=== PATIENT | male | born 1955 | race Caucasian/White ===

== ENCOUNTER 2017-12-24 15:09 | Observation (INO) | payer MEDICARE ==
[~2017-12-24] VITALS: Ht 177.8 cm; Wt 88.8 kg
[~2017-12-24 15:09] MED LIST: ASPIR 8181 MG PO; BENICAR40 MG PO; CELEXA20 MG PO; FISH OIL 1,001000 M2 PO; HYDROCHLOROTHIA25 M2 PO; IMDUR 60 MG TAB60 M1 PO; LEVOTHYROXIN0.025 MG PO; LIPITOR 20 MG T20 M1 PO; METFORMIN HCL500 MG PO; MINOCIN100 MG PO; NITROGLYCERIN0.4 MG SUBLING; PEPCID20 MG PO; PLAVIX 75 MG TA75 MG PO; TOPROL XL25 MG PO; TRADJENTA5 MG PO; ZETIA10 MG PO
[2017-12-24 15:14] VITALS: BP 122/48
[2017-12-24 16:01] LABS: ABSOLUTE EOSINOPHILS 0.3 thou/uL (0.0-0.7); ABSOLUTE LYMPHOCYTES 1.4 thou/uL (0.8-5.3); ABSOLUTE MONOCYTES 0.6 thou/uL (0.0-1.2); ABSOLUTE NEUTROPHILS 5.9 thou/uL (1.6-8.1); BASOPHILS 0.5 %; EOSINOPHILS 3.5 %; HEMOGLOBIN 12.8 gm/dL (14.0-18.0); LYMPHOCYTES 17.1 %; MCHC 34.6 g/dL (28.0-37.0); MCV 92.4 fL (80.0-100.0); MONOCYTES 7.4 %; MPV 8.7 fl. (7.2-11.1); NUCLEATED RBCS 0 /100WBC; PLATELET COUNT* 170 thou/uL (150-400); POLYS 71.5 %; RBC 4.01 mil/uL (4.50-6.00); RDW-CV 12.6 % (10.5-14.5); WBC 8.3 thou/uL (4.0-11.0)
[2017-12-24 16:10] LABS: ANION GAP 6 mmol/L (7-16); BUN 16 mg/dL (7-18); CALCIUM 8.6 mg/dL (8.5-10.1); CHLORIDE 105 mmol/L (98-107); CO2 29 mmol/L (21-32); GLUCOSE 151 mg/dL (70-99); SODIUM 140 mmol/L (136-145)
[2017-12-24 16:12] LABS: INR 1.1; PROTIME 10.8 Seconds (9.20-11.50)
[2017-12-24 16:28] LABS: ALBUMIN 3.8 g/dL (3.4-5.0); ALKALINE PHOSPHATASE 51 U/L (46-116); LIPASE 103 U/L (73-393); NT-PRO BRAIN NAT PEPTIDE 101 pg/mL (<300); SGOT 16 U/L (15-37); SGPT 18 U/L (30-65); TOTAL BILIRUBIN 0.6 mg/dL (<0.1-1.0); TROPONIN-I LEVEL <0.06 ng/mL (<0.06)
[2017-12-24 17:05] VITALS: BP 141/73
[2017-12-24 17:09] VITALS: BP 123/73
[2017-12-24] MEDS ORDERED: GLATOPA40 MG/1 ML SUBQ (17:41)
[2017-12-24 21:27] VITALS: BP 111/68
[2017-12-25] VITALS: BP 122/76
[2017-12-25 04:00] VITALS: BP 129/77
--- NOTE | 2017-12-25 04:26 | NUR ---
ASSUMED PT CARE AT 1930, PT IS A&OX4, PT IS TRACING SB ON THE MONITOR, ON RA SATTING MID TO HIGH 90'S PT IS UP AD SEBASTIEN IN HIS ROOM WITH HIS WALKER, PT DENIES ANY PAIN OR NEEDS BED IN LOW POSITION, CALL LIGHT IN REACH, HOURLY ROUNDING COMPLETED FOR PT SAFETY. PT SLEPT ON AND OFF THROUGHOUT THE NIGHT.
[2017-12-25 04:57] LABS: ABSOLUTE EOSINOPHILS 0.4 thou/uL (0.0-0.7); ABSOLUTE LYMPHOCYTES 1.8 thou/uL (0.8-5.3); ABSOLUTE MONOCYTES 0.6 thou/uL (0.0-1.2); ABSOLUTE NEUTROPHILS 4.4 thou/uL (1.6-8.1); BASOPHILS 0.4 %; EOSINOPHILS 5.7 %; HEMOGLOBIN 12.4 gm/dL (14.0-18.0); LYMPHOCYTES 24.5 %; MCH 32.1 pg (26.0-34.0); MCHC 34.4 g/dL (28.0-37.0); MCV 93.1 fL (80.0-100.0); MONOCYTES 8.4 %; MPV 8.9 fl. (7.2-11.1); NUCLEATED RBCS 0 /100WBC; PLATELET COUNT* 155 thou/uL (150-400); RBC 3.87 mil/uL (4.50-6.00); RDW-CV 13.1 % (10.5-14.5); WBC 7.2 thou/uL (4.0-11.0)
[2017-12-25 05:28] LABS: CREATININE 1.1 mg/dL (0.6-1.3); POTASSIUM 4.6 mmol/L (3.5-5.1)
[2017-12-25 07:45] VITALS: BP 124/84
--- NOTE | 2017-12-25 09:24 | EKG ---
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 BEDOYA : 1955 Requested By: Kendell Linn Order Number: [id number] MD: Bismark Logan Measurements Intervals [place] Rate: 56 P: 36 AL: 162 QRS: 9 QRSD: 134 T: QT: 435 QTc: 420 Interpretive Statements Sinus bradycardia Nonspecific intraventricular conduction delay Repol abnrm suggests ischemia, anterolateral Baseline wander in lead(s) V4 Compared to ECG 02/02/2017 22:21:06 Possible ischemia now present ST (T wave) deviation now present Electronically Signed On 12-25-2017 9:23:49 CDT by Bismark Logan [email or web address] <ELECTRONICALLY SIGNED> By: Bismark Logan MD, FAC 12/25/17 0923 1516 1516 Bismark Logan MD, FAC /EPI
--- NOTE | 2017-12-25 09:30 | EKG ---
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 : 1955 Requested By: Kendell Linn Order Number: [id number] MD: Bismark Logan Measurements Intervals [place] Rate: 47 P: 37 IA: 182 QRS: 7 QRSD: 126 T: -43 QT: 505 QTc: 447 Interpretive Statements Sinus bradycardia Nonspecific intraventricular conduction delay Abnrm T, consider ischemia, anterolateral lds Baseline wander in lead(s) V2 Electronically Signed On 12-25-2017 9:30:35 CDT by Bismark Logan [email or web address] <ELECTRONICALLY SIGNED> By: Bismark Logan MD, [facility] 12/25/17 0930 0256 0256 Bismark Logan MD, [facility] /EPI
--- NOTE | 2017-12-25 10:14 | NUR ---
RECIEVED REPORT FROM JACQUELINE AND ASSUMED CARE OF PT @ 8953. PT A/O X4,VSS,TRACING SINUS ADELINA ON MONITOR.LUNG SOUNDS ARE CLEAR WITH O2 SAT 96% ON ROOM AIR.PT STATES LAST BM WAS YESTERDAY.IV RIGHT AC PATENT AND SALINE LOCKED.PT IS CALM AND COOPERATIVE WITH NO C/O PAIN AT TIME OF ASSESSMENT. PT IS UP AD SEBASTIEN IN ROOM TO BATHROOM.CALL LIGHT WITHIN REACH. DISCUSSED PLAN OF CARE WITH PT AND PT COMMUNICATES UNDERSTANDING. WILL CONTINUE TO MONITOR. DOCTOR SAW PT AND OK TO D/C AFTER LABS DRAWN AND PT EVALUATION.
[2017-12-25] MEDS ORDERED: AUGMENTIN 875-1 EACH PO (10:31)
[2017-12-25 10:32] VITALS: BP 124/84
--- NOTE | 2017-12-25 10:38 | NUR ---
CM SPOKE TO THE PATIENT TO DISCUSS HOME SITUATION, DISCHARGE PLANNING, AND TO INFORM OF THE ROLE OF CM. PATIENT ALERT, ORIENTED, AND INDEPENDENT WITH ADL'S. PATIENT RESIDES AT HOME WITH AND SHE DOES ALL COOKING, CLEANING, AND DRIVING. PATIENT USES A CANE FOR MOBILITY AND ALSO OWNS A WALKER THAT HE USES OUTSIDE THE HOME. PATIENT ALSO OWNS A CPAP, BUT DOES NOT USE IT. PATIENT HAS NO HX OF HH OR SNF. PATIENT PLANS TO RETURN HOME AT D/C AND IS REQUESTING ASSISTANCE WITH OBTAINING A WALKER. CM WILL REMAIN AVAILABLE TO ASSIST AND FOLLOW NEEDED.
[2017-12-25 11:54] VITALS: BP 138/69
[2017-12-25 12:07] LABS: ALBUMIN 3.9 g/dL (3.4-5.0); CREATININE 1.1 mg/dL (0.6-1.3); POTASSIUM 3.6 mmol/L (3.5-5.1); TOTAL BILIRUBIN 0.7 mg/dL (<0.1-1.0); TOTAL PROTEIN 7.3 g/dL (6.4-8.2)
--- NOTE | 2017-12-25 14:41 | NUR ---
PT'S MEDICAL CHART REVIEWED AND STATUS DISCUSSED W/ NSG. PT DEMO INDEP BED MOB, MOD INDEP TRANSFERS AND MOD INDEP GAIT W/ RW. PT AND SPOUSE VOICE NO CONCERNS REGARDING DISCHARGE TO HOME. PT INDICATES THEY ARE AWAITING A 4WW FOR DISCHARGE TO HOME. NO FURTHER ACUTE PT SERVICES ARE INDICATED AT THIS TIME.
--- NOTE | 2017-12-25 16:00 | NUR ---
DISCHARGE PAPERWORK GONE OVER AND GIVEN TO PT.SCRIPTS GIVEN WITH EDUCATION.IV REMOVED AND HEART MONITOR REMOVED AND RETURNED TO NURSING STATION.BULL FROM [facility] EMERGENCY DEPARTMENT DELIVERED TO PT ROOM.ALL PERSONAL BELONGINGS PACKED AND TAKEN WITH PT.WHEELED OUT BY NURSING STAFF TO PERSONAL VEHICLE.
--- NOTE | 2017-12-27 12:21 | CON ---
[address] [address] CONSULTATION Name: ESPINOZAPETRONA Sandoval Room: [address] Olivier Otto#: [id number] Admission: 12/24/17 Attend Phys: Jamey Dodge MD Discharge: 12/25/17 Date of : 57 Report #: [id number] THIS REPORT FOR: //name// CC: Jamey Raza NP DATE OF SERVICE: 12/24/2017 HISTORY OF PRESENT ILLNESS: The patient is a 62-year-old white male who came to the Emergency Room complaining of chest pain. The patient previously was a black in [place], [place]. He had stents placed in his right coronary artery in 2004. He had stents placed in the circumflex and LAD in 2006, both in [place], [place]. In 2007, he underwent 2-vessel bypass surgery in [place], [place]. It included PIERRE graft to the diagonal with a jump graft to the LAD and no vein grafts were used. He moved to [place], [place] in 2015. He is not very active because of multiple sclerosis and uses a walker. He was admitted to [facility] a year ago in 11/2016 with frequent chest tightness. Nuclear stress test showed ischemia. He underwent a cardiac catheterization that showed a stent in the right coronary artery with no restenosis. The posterior descending branch with diffuse disease. The left main had no significant disease. The circumflex distally had a posterolateral branch with an 80% stenosis, although is a small vessel. The LAD had a stent with a 99% restenosis. The apical LAD diffusely diseased. The PIERRE graft had a 90% ostial stenosis. There was then a jump graft to the LAD. I placed a single drug-eluting stent in the ostium of the [place] LAD. The patient was actually admitted here to [facility] last summer with a stroke. It affected his speech and right side. No changes were made in his medication. Recently, the patient has been having a sharp pain in his chest. It is not related to exertion or meals. There is no radiation of the pain associated with shortness of breath, diaphoresis, nausea. Lasts only a few seconds and resolves. It can occur every few days. He told his having chest pain, sent to the Emergency Room and admitted. PAST MEDICAL HISTORY: Otherwise significant for cholecystectomy, shoulder surgery. He has a history of hypertension, hyperlipidemia, multiple sclerosis, diabetes. MEDICATIONS: Consist of Lipitor, Celexa, Plavix, Zetia, Pepcid, Imdur, Synthroid, Glucophage, metoprolol, Benicar. ALLERGIES: He has no known drug allergies. FAMILY HISTORY: Father had heart disease. SOCIAL HISTORY: He is . He and his live in [place], [place], [place] [address] CONSULTATION Name: PETRONA DORAN Room: [address] Olivier Otto#: [id number] Admission: 12/24/17 Attend Phys: Jamey Dodge MD Discharge: 12/25/17 Date of : 57 Report #: [id number] retired black. No longer smokes. No alcohol abuse. REVIEW OF SYSTEMS: He has had no history of asthma, peptic ulcer disease, liver disease, kidney disease, cancer, psychiatric illness. PHYSICAL EXAMINATION: GENERAL: Revealed a middle-aged male, lying in bed. No acute distress. VITAL SIGNS: He had a blood pressure 120/40, pulse 60. He is afebrile. HEENT: He is anicteric. Conjunctivae pink. Mucous membranes appear dry. NECK: Veins nondistended. No carotid bruits. CHEST: Clear to auscultation. CARDIAC: Regular rate and rhythm. ABDOMEN: Soft, nontender. EXTREMITIES: Had no edema. Dorsalis pedis pulse 1+ bilaterally. SKIN: Warm, dry. NEUROLOGIC: Nonfocal. LABORATORY DATA: ECG shows sinus bradycardia, nonspecific T-wave changes. His portable chest x-ray today, heart size normal, aortic calcification, previous sternotomy, left basilar infiltrate. Carotid Doppler study last January showed no significant stenosis. IMPRESSION AND RECOMMENDATIONS: 1. Chest pain. Atypical for angina. Suspect noncardiac. I would not recommend stress testing. I would continue aspirin and Plavix. 2. Diabetes. 3. Hypertension. The patient is on a beta-agusto and ARB. 4. Hyperlipidemia. The patient is on Zetia and a statin drug. 5. Multiple sclerosis. The patient uses a walker. 6. Previous stroke. No recurrent episodes. 7. Previous tobacco abuse. 8. Possible pneumonia. <ELECTRONICALLY SIGNED> By: Bismark Logan MD, FACC 12/27/17 1221 1618 01Bismark Logan MD, FACC /nt
== END 2017-12-25 16:44 | disposition home or self-care (01) ==
LOC: M.ERS 15:09 → M.2W 16:03 → M.TBA-ER 16:03 → M.2W 16:03
PROVIDERS: Family Medicine; ADMIT Internal Medicine
DX: R07.89 Other chest pain (principal); J18.1 Lobar pneumonia, unspecified organism; I25.119 Atherosclerotic heart disease of native coronary artery with unspecified angina pectoris; E11.9 Type 2 diabetes mellitus without complications; E78.5 Hyperlipidemia, unspecified; G35 Multiple sclerosis; Z95.5 Presence of coronary angioplasty implant and graft; Z87.891 Personal history of nicotine dependence; Z98.890 Other specified postprocedural states; Z86.73 Personal history of transient ischemic attack (TIA), and cerebral infarction without residual deficits

== ENCOUNTER → 2018-02-03 | Outpatient (CLI) | payer OTHER ==
[~2018-02-03] MED LIST changes: +AUGMENTIN 875-1 EACH PO; +GLATOPA40 MG/1 ML SUBQ
== END ==
LOC: M.MRI 11:20
DX: I63.9 Cerebral infarction, unspecified (principal); G31.1 Senile degeneration of brain, not elsewhere classified; F54 Psychological and behavioral factors associated with disorders or diseases classified elsewhere; G35 Multiple sclerosis

== ENCOUNTER → 2019-01-06 | Outpatient (CLI) | payer OTHER ==
[~2019-01-06] VITALS: Ht 177.8 cm; Wt 88.9 kg
[~2019-01-06] MED LIST changes: +MICARDIS 20MG T20 M1 PO
[2019-01-06 07:49] VITALS: BP 143/85
[2019-01-06 08:09] LABS: HEMATOCRIT 38.8 % (42.0-52.0); HEMOGLOBIN 13.1 gm/dL (14.0-18.0); MCH 30.8 pg (26.0-34.0); MCHC 33.8 g/dL (28.0-37.0); MCV 91.1 fL (80.0-100.0); MPV 8.8 fl. (7.2-11.1); RBC 4.26 mil/uL (4.50-6.00); RDW-CV 13.3 % (10.5-14.5); WBC 13.8 thou/uL (4.0-11.0)
[2019-01-06 08:15] LABS: APTT 27.5 Seconds (25.0-31.3); PROTIME 10.7 Seconds (9.20-11.50)
[2019-01-06 08:19] LABS: ALBUMIN 4.2 g/dL (3.4-5.0); ALKALINE PHOSPHATASE 56 U/L (46-116); ANION GAP 9 mmol/L (7-16); BUN 17 mg/dL (7-18); CALCIUM 8.6 mg/dL (8.5-10.1); CHLORIDE 103 mmol/L (98-107); CHOLESTEROL 109 mg/dL (<200); CO2 26 mmol/L (21-32); CREATININE 1.2 mg/dL (0.6-1.3); GLUCOSE 121 mg/dL (70-99); HDL CHOLESTEROL 49 mg/dL (>40); LDL CHOLESTEROL 47 mg/dL (<100); POTASSIUM 3.9 mmol/L (3.5-5.1); SGOT 15 U/L (15-37); SGPT 16 U/L (30-65); SODIUM 138 mmol/L (136-145); TC:HDL 2.2 Ratio (Not establshd); TOTAL BILIRUBIN 0.8 mg/dL (<0.1-1.0); TOTAL PROTEIN 7.6 g/dL (6.4-8.2); TRIGLYCERIDE 69 mg/dL (<150); VLDL 14 mg/dL (<40)
[2019-01-06 08:20] LABS: SERUM ASSESSMENT Clear
--- NOTE | 2019-01-06 13:29 | EKG ---
[place] [address] ELECTROCARDIOGRAM REPORT Name: TANIYA DORAN ZARIA Room: [facility]#: [id number] Admission: 01/06/19 Attend Phys: Bismark Logan MD, F Discharge: Date of : 57 Report #: [id number] THIS REPORT FOR: //name// [facility] Test Date: 2019-01-06 Test Time: 07:50:54 Pat Name: TANIYA DORAN Department: Room: Gender: M Engineering Assistant: : 1955 Requested By: Bismark Logan Order Number: [id number] Hong MD: Bismark Logan Measurements Intervals [place] Rate: 68 P: 64 NE: 158 QRS: 25 QRSD: 101 T: 68 QT: 435 QTc: 463 Interpretive Statements Sinus rhythm Compared to ECG 12/25/2017 02:56:44 Sinus bradycardia no longer present Possible ischemia no longer present Electronically Signed On 01-06-2019 13:29:02 CDT by Bismark Logan [email or web address] <ELECTRONICALLY SIGNED> By: Bismark Logan MD, [facility] 01/06/19 1329 0750 0750 Bismark Logan MD, FACC /EPI
--- NOTE | 2019-01-06 16:29 | CARDNUC ---
[place] [address] CARDIAC NUCLEAR IMAGING REPORT Name: ESPINOZATANIYA BYERSDRICK Room: [facility]#: [id number] Admission: 01/06/19 Attend Phys: Bismark Logan MD Discharge: Date of : 57 Date of Service: 01/06/19 1628 Report #: [id number] THIS REPORT FOR: //name// APPROVED REPORT Study performed: 01/06/2019 13:05:58 Exam: Nuclear Stress Test Indication: Chest pain Patient Location: Out-Patient Stress Tech: [facility] Stress Nurse: Sierra Jones RN Ht: 5 ft 10 in Wt: 196 lbs BSA: 2.07 m2 BMI: 28.12 Medical History Medications: isosorbide, metoprolol, Plavix, zetia, atorvastatin, micardis, ASA, fish oil Allergies: NKDA Cardiac Risk Factors: Age, HLP, HTN, DM, PVD Previous Cardiac Procedures: CABG Meds Held (24 hrs): isosorbide, metoprolol Stress Test Details Stress Test: Pharmacologic stress testing performed using 0.4 mg of regadenoson per 5 mL given IV over 10 seconds. HR Resting HR: 76 bpm Max Heart Rate (APMHR): 158 bpm Max HR Achieved: 89 bpm Target HR (85% APMHR): 134 bpm % of APMHR: 56 Recovery HR: 71 bpm BP Resting BP: 123/83 mmHg Max BP: 166/67 mmHg ECG Resting ECG: Sinus Rhythm Stress ECG: Sinus Rhythm ST Change: None Arrhythmia: None Recovery ECG: Sinus Rhythm Recovery ST Change: [place] [address] CARDIAC NUCLEAR IMAGING REPORT Name: ESPINOZATANIYA BYERSDRICK Room: [facility]#: [id number] Admission: 01/06/19 Attend Phys: Bismark Logan MD Discharge: Date of : 57 Date of Service: 01/06/19 1628 Report #: [id number] Recovery Arrhythmia: None Clinical Reason for Termination: Completed protocol Stress Symptoms: none The patient tolerated Lexiscan infusion without significant symptoms. Stress ECG Conclusion The baseline 12-lead EKG shows sinus rhythm with no significant ST or T wave abnormality. EKGs obtained during and post Lexiscan show sinus rhythm no significant ST or T wave changes when compared to baseline. There were no stress-induced arrhythmias. NM EXAM: Myocardial Perfusion REST/STRESS Imaging Protocol: Rest Tc-99m/Stress Tc-99m 1 day Resting Data Rest SPECT myocardial perfusion imaging was performed in supine position 30 minutes following the intravenous injection of 12.0 mCi of Tc-99m Sestamibi. Time of rest injection: 12:00 The images were gated to evaluate regional wall motion and calculate left ventricular ejection fraction. Administration Route: IV Administration Site: Left Hand Pharmacologic Stress Pharmacologic stress test was performed by injecting Regadenoson 0.4 mg IV push followed by the intravenous injection of 36.0 mCi of Tc-99m Sestamibi. Time of stress injection: 13:05 Administration Route: IV Administration Site: Left Hand Heart Rate at time of stress injection: 89 bpm. Gated Stress SPECT was performed 40 minutes after stress injection. The images were gated to evaluate regional wall motion and calculate left ventricular ejection fraction. Prone imaging was performed. Study Quality Study: Good Artifact: Mild Diaphragmatic [place] [address] CARDIAC NUCLEAR IMAGING REPORT Name: TANIYA DORANDRICK Room: [facility]#: [id number] Admission: 01/06/19 Attend Phys: Bismark Logan MD Discharge: Date of : 57 Date of Service: 01/06/19 1628 Report #: [id number] At rest, the left ventricular ejection fraction was 62%.. Post stress, the left ventricular ejection was 54%.. TID = 1.09. Perfusion Myocardial perfusion images obtained in the supine position at rest and post stress show mild photopenia in the basal inferior wall that resolves with post stress prone imaging suggesting diaphragmatic attenuation artifact. There is a focal basal inferior wall defect appears fixed and possibly represents prior infarct. No reversible defects are identified. Wall Motion Global LV systolic function is preserved. There is a septal wall motion abnormality noted consistent with prior bypass procedure. Nuclear Conclusion ECG Findings: negative for ischemia Clinical Findings: negative for ischemia Nuclear Findings: negative for ischemia Exercise Capacity: not assessed Left Ventricular Function: preserved Risk Study: low Perfusion images show no defect to suggest ischemia. A possible focal infarct of the basal inferior wall. Global LV systolic function is preserved. This is not a high risk study. <Conclusion> The baseline 12-lead EKG shows sinus rhythm with no significant ST or T wave abnormality. EKGs obtained during and post Lexiscan show sinus rhythm no significant ST or T wave changes when compared to baseline. There were no stress-induced arrhythmias. <ELECTRONICALLY SIGNED> By: Alcon Martin MD, FACC 01/06/19 1628 1628 1628 Alcon Martin MD, FACC /INF
--- NOTE | 2019-01-07 15:00 | NUR ---
Patient was scheduled for Cardiac Catheterization yesterday with Dr. Logan. Patient arrived and orders for prep to cathlab followed. Dr. Logan arrived and stated that he would rather his patient have a stress test than the more invasive cardiac cath. Patient had the stress test instead of the cardiac cath.
== END | disposition home or self-care (01) ==
LOC: M.CL 07:09
PROVIDERS: Internal Medicine Cardiovascular Disease
DX: R07.9 Chest pain, unspecified (principal); I10 Essential (primary) hypertension; E78.5 Hyperlipidemia, unspecified; E11.9 Type 2 diabetes mellitus without complications; E78.00 Pure hypercholesterolemia, unspecified; I73.9 Peripheral vascular disease, unspecified; G35 Multiple sclerosis; Z95.1 Presence of aortocoronary bypass graft; Z79.899 Other long term (current) drug therapy; Z86.73 Personal history of transient ischemic attack (TIA), and cerebral infarction without residual deficits; Z87.891 Personal history of nicotine dependence; Z95.5 Presence of coronary angioplasty implant and graft; Z79.82 Long term (current) use of aspirin

== ENCOUNTER → 2019-02-04 | Outpatient (CLI) | payer OTHER ==
[~2019-02-04] MED LIST changes: -LEVOTHYROXIN0.025 MG PO; +LIPITOR40 MG PO; +RANEXA500 MG PO; +SYNTHROID100 MC1 PO
[2019-02-04 17:22] LABS: ABSOLUTE EOSINOPHILS 0.2 thou/uL (0.0-0.7); ABSOLUTE LYMPHOCYTES 0.9 thou/uL (0.8-5.3); ABSOLUTE MONOCYTES 0.6 thou/uL (0.0-1.2); ABSOLUTE NEUTROPHILS 7.1 thou/uL (1.6-8.1); BASOPHILS 0.3 %; EOSINOPHILS 2.2 %; HEMATOCRIT 40.4 % (42.0-52.0); HEMOGLOBIN 13.9 gm/dL (14.0-18.0); LYMPHOCYTES 10.8 %; MCH 31.8 pg (26.0-34.0); MCHC 34.5 g/dL (28.0-37.0); MONOCYTES 6.4 %; MPV 9.1 fl. (7.2-11.1); NUCLEATED RBCS 0 /100WBC; PLATELET COUNT* 200 thou/uL (150-400); POLYS 80.3 %; RBC 4.38 mil/uL (4.50-6.00); RDW-CV 13.3 % (10.5-14.5); WBC 8.8 thou/uL (4.0-11.0)
[2019-02-04 17:35] LABS: ALBUMIN 4.3 g/dL (3.4-5.0); CALCIUM 9.2 mg/dL (8.5-10.1)
[2019-02-04 18:26] LABS: ESR (SEDRATE) 2 mm/hr (0-20)
== END ==
LOC: M.LAB 16:30 → M.MRI 17:30
PROVIDERS: Psychiatry & Neurology Neuromuscular Medicine
DX: I63.9 Cerebral infarction, unspecified (principal); G35 Multiple sclerosis; R90.82 White matter disease, unspecified; R26.9 Unspecified abnormalities of gait and mobility

== ENCOUNTER → 2019-02-09 | Outpatient (CLI) | payer OTHER ==
[~2019-02-09] MED LIST changes: +LEVOTHYROXIN0.025 MG PO; -LIPITOR40 MG PO; -RANEXA500 MG PO; -SYNTHROID100 MC1 PO
== END ==
LOC: M.MRI 01-19 10:15
DX: M50.221 Other cervical disc displacement at C4-C5 level (principal); M47.812 Spondylosis without myelopathy or radiculopathy, cervical region; M48.02 Spinal stenosis, cervical region; M41.84 Other forms of scoliosis, thoracic region; R60.9 Edema, unspecified; I63.9 Cerebral infarction, unspecified; G35 Multiple sclerosis; M62.81 Muscle weakness (generalized); R26.9 Unspecified abnormalities of gait and mobility

== ENCOUNTER 2019-04-01 17:29 | Inpatient (IN) | payer OTHER ==
[~2019-04-01] VITALS: Ht 177.8 cm; Wt 90.7 kg
[~2019-04-01 17:29] MED LIST changes: -LEVOTHYROXIN0.025 MG PO; +SYNTHROID100 MC1 PO
[2019-04-01 17:36] VITALS: BP 129/68
[2019-04-01] MEDS ORDERED: RANEXA500 MG PO (17:42)
[2019-04-01 17:56] LABS: ABSOLUTE BASOPHILS 0.1 thou/uL (0.0-0.2); ABSOLUTE EOSINOPHILS 0.3 thou/uL (0.0-0.7); ABSOLUTE LYMPHOCYTES 2.2 thou/uL (0.8-5.3); ABSOLUTE MONOCYTES 1.4 thou/uL (0.0-1.2); ABSOLUTE NEUTROPHILS 12.2 thou/uL (1.6-8.1); BASOPHILS 0.4 %; EOSINOPHILS 1.7 %; HEMATOCRIT 41.6 % (42.0-52.0); HEMOGLOBIN 14.3 gm/dL (14.0-18.0); LYMPHOCYTES 13.7 %; MCH 31.4 pg (26.0-34.0); MCHC 34.4 g/dL (28.0-37.0); MCV 91.4 fL (80.0-100.0); MONOCYTES 8.7 %; MPV 8.9 fl. (7.2-11.1); NUCLEATED RBCS 0 /100WBC; PLATELET COUNT* 223 thou/uL (150-400); POLYS 75.5 %; RBC 4.55 mil/uL (4.50-6.00); RDW-CV 12.7 % (10.5-14.5); WBC 16.2 thou/uL (4.0-11.0)
[2019-04-01 18:04] LABS: ANION GAP 9 mmol/L (7-16); BUN 21 mg/dL (7-18); CALCIUM 8.4 mg/dL (8.5-10.1); CHLORIDE 102 mmol/L (98-107); CO2 29 mmol/L (21-32); CREATININE 1.1 mg/dL (0.6-1.3); GLUCOSE 141 mg/dL (70-99); POTASSIUM 3.9 mmol/L (3.5-5.1); SODIUM 140 mmol/L (136-145)
[2019-04-01 18:14] LABS: ALBUMIN 3.6 g/dL (3.4-5.0); ALKALINE PHOSPHATASE 49 U/L (46-116); LIPASE 271 U/L (73-393); MAGNESIUM 2.3 mg/dL (1.8-2.4); NT-PRO BRAIN NAT PEPTIDE 379 pg/mL (<300); SGOT 12 U/L (15-37); SGPT 38 U/L (30-65); TOTAL BILIRUBIN 0.8 mg/dL (<0.1-1.0); TOTAL PROTEIN 6.7 g/dL (6.4-8.2); TROPONIN-I LEVEL <0.06 ng/mL (<0.06)
[2019-04-01 19:55] VITALS: BP 136/64
[2019-04-01 20:15] VITALS: BP 121/61; BP 134/51
[2019-04-02] VITALS (19 sets, daily range): BP systolic 116–150; BP diastolic 47–84
--- NOTE | 2019-04-02 04:34 | NUR ---
RECEIVED PT FROM ED PER CART AT APPROX 2014. PT IS AWAKE AND ORIENTED X4. VSS ON ROOM AIR. 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 PT REMAINED ASYMPTOMATIC. PT STATED TO HAVING INTERMITTENT CHEST PAIN AT 0-1/10, PT DENIES THE NEED FOR SOME NTG. PT ADVISED ON THE USE OF CALL LIGHT AND ON ROOM SET UP. PT ADVISED TO HAVE NOTHING BY MOUTH POST MIDNIGHT FOR CARDIOLOGY. HIGH FALL PRECAUTIONS IN PLACE. CALL LIGHT WITHIN REACH. HOURLY ROUNDING DONE FOR PT SAFETY.
--- NOTE | 2019-04-02 08:47 | NUR ---
ASSUMED CARE OF PT AT 0730. PT RESTING IN BED WITH AT BEDSIDE. PT A&0X4, DENIES ANY PAIN OR SHORTNESS OF BREATH AT THIS TIME. PT TRACING SB/SR ON THE GIVING OFFICER. PT ON RA SAT UPPER 90'S. PT UP WITH 1 ASSIST AND WALKER TO BATHROOM. PT NPO AT THIS TIME FOR CARDIOLOGY CONSULT. PT GOAL FOR TODAY IS TO REMAIN FREE FROM CHEST PAIN, CARDIOLOGY CONSULT IN PLACE AND MAINTAIN HEART RATE ABOVE 50. AM ASSESSMENT CHARTED. MEDICATIONS PER NOV. PT REPOSITIONS SELF. HOURLY ROUNDING OBSERVED. BED IN LOW POSITION. CALL LIGHT WITHIN REACH. WILL CONTINUE PLAN OF CARE.
--- NOTE | 2019-04-02 11:26 | NUR ---
cm completed initial assessement to discuss d/c planning. pt a&ox4. pt's present at time of assessment. pt is disabled, not working. pt has walker. lives w/spouse, has family support. independent w/adls. no hx w/snf or hh. no anticipated needs at this times. plans to d/c to home. cm to remain available to assist as needed.
[2019-04-02 11:33] LABS: CHOLESTEROL 117 mg/dL (<200); HDL CHOLESTEROL 49 mg/dL (>40); LDL CHOLESTEROL 36 mg/dL (<100); TC:HDL 2.4 Ratio (Not establshd); TRIGLYCERIDE 160 mg/dL (<150); VLDL 32 mg/dL (<40)
[2019-04-02 11:39] LABS: SERUM ASSESSMENT Clear
--- NOTE | 2019-04-02 16:40 | EKG ---
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
--- NOTE | 2019-04-02 16:47 | EKG ---
[place] [address] ELECTROCARDIOGRAM REPORT Name: TANIYA DORAN Room: [address] ADM IN M.R.#: [id number] Admission: 04/01/19 Attend Phys: Jamey Dodge MD Discharge: Date of : 57 Report #: [id number] THIS REPORT FOR: //name// [facility] Test Date: 2019-04-02 Test Time: 13:04:32 Pat Name: TANIYA DORAN Department: Room: [address] Gender: M Cmo: : 1955 Requested By: Alcon Martin Order Number: [id number] Hong MD: Jimmie Abreu Measurements Intervals [place] Rate: 48 P: 48 SC: 157 QRS: 5 QRSD: 106 T: 57 QT: 477 QTc: 427 Interpretive Statements Sinus bradycardia Consider inferior infarct Compared to ECG 01/06/2019 07:50:54 Myocardial infarct finding now present Electronically Signed On 04-02-2019 16:47:10 CDT by Jimmie Abreu [email or web address] <ELECTRONICALLY SIGNED> By: Jimmie Abreu MD, [facility] 04/02/19 1647 1304 1304 Jimmie Abreu MD, FACC /EPI
--- NOTE | 2019-04-02 17:28 | NUR ---
NO ACUTE CHANGES THROUGHOUT SHIFT. REFER TO CHARTING. PT SEEN BY CARDIOLOGY AND TAKEN TO THE BEEF CATTLE FARM MANAGER. ACCESS INTO THE RIGHT GROIN WITH 1 STENT PLACED. POST CARDIAC CATH ASSESSMENT AND VITALS CHARTED. IVF. PT CONTINUES TO TRACE SB/SR ON THE BUFFING MACHINE TENDER. ON RA SAT UPPER 90'S. AT BEDSIDE THROUGHOUT AFTERNOON AND UPDATED ON CURRENT PLAN OF CARE. PT UP WITH 1 ASSIST AND WALKER. BEDREST POST CATH COMPLETED. PT PROGRESSING TOWARDS GOALS. PROBABLE DISCHARGE HOME TOMORROW 04/03. MEDICATIONS PER NOV. PT REPOSITIONS SELF. HOURLY ROUNDING OBSERVED. BED IN LOW POSITION. CALL LIGHT WITHIN REACH. WILL CONTINUE PLAN OF CARE.
[2019-04-03] VITALS: BP 144/85
[2019-04-03 04:00] VITALS: BP 119/85
[2019-04-03 05:14] LABS: HEMATOCRIT 39.5 % (42.0-52.0); HEMOGLOBIN 13.7 gm/dL (14.0-18.0); MCH 31.6 pg (26.0-34.0); MCHC 34.6 g/dL (28.0-37.0); MCV 91.3 fL (80.0-100.0); MPV 9.4 fl. (7.2-11.1); RBC 4.33 mil/uL (4.50-6.00); RDW-CV 12.9 % (10.5-14.5); WBC 13.2 thou/uL (4.0-11.0)
[2019-04-03 05:36] LABS: CALCIUM 9.2 mg/dL (8.5-10.1); MAGNESIUM 2.3 mg/dL (1.8-2.4); POTASSIUM 4.1 mmol/L (3.5-5.1)
--- NOTE | 2019-04-03 05:52 | NUR ---
ASSUMED PT CARE APPROX 1930. PT IS AWAKE AND ORIENTED X4. VSS ON RA. ASSESSMENT DONE AND CHARTED. POST CARDIAC CATH SITE ON RIGHT GROIN REMAINED DRY, NO BLEEDING/HEMATOMA NOTED. PLATE STRAIGHTENER IN PLACE TRACING SR. PT VERBALISED HAVING 1/10 CHEST PAIN THAT GOES ON AND OFF. PT REMAINED STABLE THROUGH OUT THE NIGHT. CALL LIGHT WITHIN REACH. HOURLY ROUNDING DONE FOR PT SAFETY.
[2019-04-03 08:00] VITALS: BP 118/73
[2019-04-03 09:56] VITALS: BP 127/68
--- NOTE | 2019-04-03 10:28 | NUR ---
ASSUMED PT CARE REPORT RECEIVED FROM NURSE. PT IS AOX4 TRACING SBRADY ON CHANNELER OUTSOLE. HEART RATE 59. ON RA. O2 SATURATION IS 95%. PT IN ROOM WIHT . NO COMPLAINT. OK TO GO HOME PER CARDIOLOGY STANDPOINT. AWAITING FOR HOSPITALIST DC ORDER.
[2019-04-03] MEDS ORDERED: LIPITOR40 MG PO (11:33)
--- NOTE | 2019-04-03 12:03 | CARD ---
[address] [address] CARDIAC CATH REPORT Name: TANIYA DORAN Room: [address] IN ..#: [id number] Admission: 04/01/19 Attend Phys: Jamey Dodge MD Discharge: Date of : 57 Report #: [id number] THIS REPORT FOR: //name// APPROVED REPORT Study performed: 04/02/2019 10:46:23 Patient Details Patient Status: In-Patient Room #: 211 The patient is a 63 year-old male Event Personnel Alcon Martin Emt, Nikole Abreu RN Rn Interventional, Adrien Torres (R) Monitor, Karla Dumont RTR ScrubBrady John Net Wpf Developer Procedures Performed ELI Place w/wo Plasty Addl BR OM 1 Procedure Narrative A 6fr Ultimum Sheath sheath was inserted into the right femoral artery. Coronary angiography was performed using coronary diagnostic catheters. The right coronary system was accessed and visualized with a Diagnostic JR4 6fr catheter. The left coronary system was accessed and visualized with a Diagnostic JL4 6fr catheter. The left ventricle was accessed and visualized with a Diagnostic PC: Pig 6fr catheter. Left ventricular/Aortic Valve gradient assessed via catheter pullback. Closure device was deployed with a Fr Angioseal STS 6Fr. The patient tolerated the procedure well and there were no complications associated with the procedure. Intraoperative Conscious Sedation Sedation start time: 11:41 Case end Time: 12:28 Fentanyl 25 mcg Versed 1 mg Fluoro Time: 11.7 minutes Dose: DAP [id number] cGycm2 2171 mGy Contrast Type and Amount: Visipaque 190 ml Coronary Angiography The patient's coronary anatomy is right dominant. [place] Artery Percent Stenosis Grafts (Complete if Previous CABG=Yes: Percent Stenosis) [place] [address] CARDIAC CATH REPORT Name: TANIYA DORAN Room: [address] IN ..#: [id number] Admission: 04/01/19 Attend Phys: Jamey Dodge MD Discharge: Date of : 57 Report #: [id number] A PIERRE graft to the first diagonal and LAD in sequential fashion is widely patent. Diagnostic Cath Left Main Normal LAD Widely patent stents in the proximal portion. There is a 70% stenosis in the midportion prior to the takeoff of a large diagonal branch. The distal vessel is filled by a PIERRE graft. Diagonal 1 90% stenosis proximal. The mid and distal vessel is filled by PIERRE graft. Circumflex Minimal plaquing in the proximal and midportion. There is a significant narrowing distally that resolved nearly completely with nitroglycerin infusion suggesting spasm. OM1 Widely patent stent in the proximal portion with a 90% narrowing distal to the stents. OM2 Widely patent without significant disease. Right Coronary The right coronary artery is dilated and ectatic from proximal to distal portion. R PDA The PDA is a small in caliber diffusely diseased vessel that is approximately 90% narrowed throughout. This vessel is not amenable to intervention. Left Ventriculography The left ventricle is normal in size with preserved contractility. The left ventricular ejection fraction is estimated to be 60-65%. There is only a focal area of hypokinesis in the basal portion the inferior wall with otherwise preserved contractility throughout the ventricle. Hemodynamics The aortic pressure is 124/56 mmHg with a mean of 88 mmHg. The left ventricular pressure is 132/4 mmHg with a mean of mmHg. The left ventricular end diastolic pressure is 10 mmHg. PCI Technique Lesion Anticoagulation was achieved with Angiomax. Patient was preloaded with Angiomax IV 13.5 ml. Percutaneous coronary intervention was performed on the first obtuse marginal branch segment. The lesion stenosis prior to intervention was 90% with DAY 3 flow. A 6F XB LAD 3.5 Guide Catheter was used to engage the ostium. A IG: BMW 190cm Interventional Guidewire was used to cross the lesion. BALLOON DILATION A Balloon catheter Mini Trek RX 2.0 X 8 was inserted and inflated up to 10.00atm for 18seconds. Additional Inflation: 14.00atm for 22seconds. [place] [address] CARDIAC CATH REPORT Name: TANIYA DORAN Room: [address] IN ..#: [id number] Admission: 04/01/19 Attend Phys: Jamey Dodge MD Discharge: Date of : 57 Report #: [id number] STENT DEPLOYMENT A drug-eluting stent Xience Bhavya 2.25X8mm was inserted and inflated up to 7.00atm for 11seconds. Additional Inflation: 9.00atm for 11seconds. Final angiography reveals 0 % stenosis with DAY 3 flow. Conclusion 1. Widely patent stents in the proximal LAD and proximal first obtuse marginal branch. 2. Significant narrowing of these first obtuse marginal just distal to the stent. 3. Diffusely diseased PDA not amenable to intervention. 4. Significant coronary spasm noted in the distal circumflex that resolves almost completely with nitroglycerin infusion. 5. Normal left ventricular end-diastolic pressure. 6. Preserved left ventricular systolic function with only a small focal wall motion abnormality in the inferior wall. 7. Successful percutaneous coronary intervention with deployment of a drug-eluting stent at site of 90% stenosis in the first marginal branch of the circumflex with 0% residual narrowing and DAY-3 flow the distal vessel Recommendations 1. Aggressive risk factor modification. 2. Percutaneous coronary intervention to the first obtuse marginal lesion. Medications Administered Aspirin (any) Clopidogrel Diagnostic Cath Approved by: Alcon Martin MD Date/Time: 04/03/2019 12:02:11 <ELECTRONICALLY SIGNED> By: Jimmie Abreu MD, [facility] 04/03/19 1203 1203 1203Jimmie Abreu MD, FACC /INF
[2019-04-03 13:33] VITALS: BP 103/54
--- NOTE | 2019-04-05 12:25 | EKG ---
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
--- NOTE | 2019-04-06 21:30 | CON ---
[address] [address] CONSULTATION Name: TANIYA DORAN Room: [address] IN M.R.#: [id number] Admission: 04/01/19 Attend Phys: Jamey Dodge MD Discharge: 04/03/19 Date of : 57 Report #: [id number] THIS REPORT FOR: //name// CC: Jamey Logan MD [facility] FAM unknown INDICATION: Unstable angina. HISTORY OF PRESENT ILLNESS: The patient is a 63-year-old gentleman with history of 2-vessel coronary artery bypass grafting remotely as well as multiple percutaneous coronary interventions. He states he has been having increasing angina over the last 1-2 weeks. He has not had prolonged pain. EKG shows sinus rhythm without acute ST-segment abnormality. Enzymes were unremarkable x 3. The pain radiates to the left upper arm as described as a pressure that is aching and sharp. He was recently seen at outside hospital and told that he had angina. CARDIAC RISK FACTORS: Include remote history of smoking, hyperlipidemia, type 2 diabetes mellitus, hypertension, and family history of coronary artery disease. PAST MEDICAL HISTORY: Coronary artery disease with stents in 2004, 2006 and 2016. He had 2-vessel coronary artery bypass grafting in 2007. He has had a history of stroke in the past. He has MS and uses a walker. Other risk factors include hypertension, dyslipidemia, and type 2 diabetes mellitus. PAST SURGICAL HISTORY: Coronary intervention as outlined above. Two-vessel coronary artery bypass grafting as outlined above, previous shoulder surgery and cholecystectomy. FAMILY HISTORY: Positive for coronary artery disease in the patient's father. SOCIAL HISTORY: The patient is retired. He quit smoking remotely. He does not drink alcohol. ALLERGIES: None documented. HOME MEDICATIONS: Aspirin 81 mg daily, Lipitor 20 mg at bedtime, citalopram 20 mg daily, Plavix 75 mg daily, fish oil 1000 mg daily, Zetia 10 mg daily, Imdur 60 mg b.i.d., Synthroid 100 mcg daily, Tradjenta 5 mg daily, metformin 500 mg b.i.d., metoprolol succinate 25 mg daily, Nitrostat p.r.n., ranolazine 500 mg b.i.d., Micardis 20 mg daily. REVIEW OF SYSTEMS: A 14-point review of systems is positive for cough that is nonproductive, chest discomfort as outlined above, some orthopnea[place] [address] CONSULTATION Name: TANIYA DORAN Room: [address]#: [id number] Admission: 04/01/19 Attend Phys: Jamey Dodge MD Discharge: 04/03/19 Date of : 57 Report #: [id number] 2 diabetes mellitus. He has arthritis. He wears glasses without acute visual loss. He has generalized weakness from MS. Otherwise, 14-point review of systems was unremarkable. PHYSICAL EXAMINATION: VITAL SIGNS: Stable. Blood pressure 134/66, pulse is 48 and regular. GENERAL: This is a pleasant gentleman who is in no distress. Mood and affect appropriate. HEENT: Extraocular muscles intact. Mucous membranes are moist. NECK: Shows no jugular venous distention. I do not appreciate carotid bruit. CHEST: Reveals clear lung arnold without wheezes or rales. CARDIOVASCULAR: Reveals a regular rhythm without gallop or murmur. ABDOMEN: Reveals normal bowel sounds. The abdomen is soft, nontender. EXTREMITIES: Shows no edema. SKIN: Dry. IMAGING DATA: A 12-lead EKG shows sinus bradycardia without acute ST or T-wave abnormality. LABORATORY DATA: Reviewed. Electrolytes within normal limits. BUN 21, creatinine 1.1, serum glucose 141. LFTs are within normal limits. Troponin less than 0.06 on 3 separate occasions. NT-proBNP 379. Hemoglobin 14.3, white count 16.2, platelet count 222,000. Chest x-ray, no acute process. IMPRESSION AND RECOMMENDATIONS: 1. Unstable angina. We will proceed with coronary angiography and possible intervention. Continue aspirin and Plavix. 2. Coronary artery disease. The patient on appropriate medications as outlined above. 3. Bradycardia. Presently stable. He is on a low dose beta agusto which I would like to continue. 4. Diabetes per primary physician. 5. Hyperlipidemia, at goal on current dose of atorvastatin. <ELECTRONICALLY SIGNED> By: Alcon Martin MD, FACC 04/06/19 2130 1012 1244Micying Martin MD, FACC /nt
== END 2019-04-03 13:45 | disposition home or self-care (01) | DRG 247 ==
LOC: M.ERS 17:29 → M.TBA-ER 18:41 → M.2W 18:41
PROVIDERS: Emergency Medicine Emergency Medical Services; Family Medicine; Internal Medicine Cardiovascular Disease; ADMIT Internal Medicine
DX: I25.110 Atherosclerotic heart disease of native coronary artery with unstable angina pectoris (principal); E78.00 Pure hypercholesterolemia, unspecified; G35 Multiple sclerosis; I12.9 Hypertensive chronic kidney disease with stage 1 through stage 4 chronic kidney disease, or unspecified chronic kidney disease; E11.22 Type 2 diabetes mellitus with diabetic chronic kidney disease; N18.2 Chronic kidney disease, stage 2 (mild); E78.5 Hyperlipidemia, unspecified; E03.9 Hypothyroidism, unspecified; Z86.73 Personal history of transient ischemic attack (TIA), and cerebral infarction without residual deficits; Z95.818 Presence of other cardiac implants and grafts; Z79.82 Long term (current) use of aspirin; Z79.899 Other long term (current) drug therapy; Z82.49 Family history of ischemic heart disease and other diseases of the circulatory system; Z87.891 Personal history of nicotine dependence

== ENCOUNTER 2019-07-02 20:22 | Inpatient (IN) | payer OTHER ==
[~2019-07-02] VITALS: Ht 177.8 cm; Wt 88.0 kg
[~2019-07-02 20:22] MED LIST changes: +LIPITOR40 MG PO; +RANEXA500 MG PO
[2019-07-02 22:45] VITALS: BP 163/97
[2019-07-03 04:00] VITALS: BP 146/90
[2019-07-03 08:00] VITALS: BP 163/88
[2019-07-03 10:50] LABS: ABSOLUTE BASOPHILS 0.1 thou/uL (0.0-0.2); ABSOLUTE EOSINOPHILS 0.7 thou/uL (0.0-0.7); ABSOLUTE LYMPHOCYTES 1.5 thou/uL (0.8-5.3); ABSOLUTE MONOCYTES 0.7 thou/uL (0.0-1.2); BASOPHILS 0.8 %; EOSINOPHILS 8.5 %; HEMATOCRIT 38.3 % (42.0-52.0); HEMOGLOBIN 13.5 gm/dL (14.0-18.0); LYMPHOCYTES 19.2 %; MCH 31.9 pg (26.0-34.0); MCHC 35.2 g/dL (28.0-37.0); MCV 90.6 fL (80.0-100.0); MONOCYTES 8.6 %; MPV 8.6 fl. (7.2-11.1); NUCLEATED RBCS 0 /100WBC; PLATELET COUNT* 182 thou/uL (150-400); POLYS 62.9 %; RBC 4.23 mil/uL (4.50-6.00); RDW-CV 12.7 % (10.5-14.5)
[2019-07-03 10:59] LABS: APTT 27.8 Seconds (25.0-31.3); INR 1.1
[2019-07-03 11:02] LABS: ALBUMIN 3.9 g/dL (3.4-5.0); CALCIUM 9.2 mg/dL (8.5-10.1); MAGNESIUM 2.1 mg/dL (1.8-2.4); POTASSIUM 3.8 mmol/L (3.5-5.1); TOTAL BILIRUBIN 0.9 mg/dL (<0.1-1.0); TOTAL PROTEIN 7.1 g/dL (6.4-8.2)
--- NOTE | 2019-07-03 14:37 | CON ---
[address] [address] CONSULTATION Name: TANIYA DORAN Room: [address] IN M.R.#: [id number] Admission: 07/02/19 Attend Phys: Saroj Kiran MD Discharge: Date of : 57 Report #: [id number] THIS REPORT FOR: //name// CC: Bismark Logan MD [facility] physician/PCP Saroj Kiran [place], [place] INDICATION: Unstable angina. HISTORY OF PRESENT ILLNESS: The patient is a very pleasant 63-year-old gentleman who is well known to our service. He has rather significant diffuse 3-vessel coronary artery disease. He is status post 2-vessel coronary artery bypass grafting remotely. He has had multiple percutaneous coronary interventions. His most recent intervention was to the OM system in 03/2019. The patient presents to the hospital with complaints of increasing chest pain and tightness. The pain is worse with activity and improves with rest. Pain lasts 4-5 minutes at a time. He has had increased pain over the last several days. This pain is consistent with his typical angina. He was seen in the Emergency Room and given sublingual nitroglycerin with relief of pain. He has ruled out for myocardial infarction. EKG did not show any ST-elevation. PAST MEDICAL HISTORY: 1. Coronary artery disease. 2. Two-vessel coronary artery bypass grafting. 3. Hyperlipidemia. 4. Hypertension. 5. Type 2 diabetes mellitus. 6. History of stroke in the past. 7. History of multiple sclerosis. PAST SURGICAL HISTORY: 1. Coronary artery bypass grafting. 2. Previous shoulder surgery. 3. Cholecystectomy. FAMILY HISTORY: Positive for coronary artery disease. SOCIAL HISTORY: The patient is retired. He quit smoking remotely. He does not drink alcohol. ALLERGIES: None documented. HOME MEDICATIONS: Atorvastatin 40 mg nightly, Celexa 20 mg daily, Plavix 75 mg daily, fish oil 1000 mg daily, Zetia 10 mg daily, isosorbide mononitrate 60 [place] [address] CONSULTATION Name: TANIYA DORAN Room: [address]#: [id number] Admission: 07/02/19 Attend Phys: Saroj Kiran MD Discharge: Date of : 57 Report #: [id number] b.i.d., Synthroid 100 mcg daily, Tradjenta 5 mg daily, metformin 500 mg b.i.d., metoprolol succinate 25 mg daily, Nitrostat p.r.n., Micardis 20 mg daily. REVIEW OF SYSTEMS: A 14-point review of systems is positive for generalized weakness, weight loss, cough that is nonproductive, history of pneumonia remotely, chest pain as outlined above, history of cardiac murmur, type 2 diabetes mellitus, thyroid disease, seasonal allergies. PHYSICAL EXAMINATION: VITAL SIGNS: Blood pressure 163/88, pulse 61 and regular. GENERAL: This is a pleasant gentleman who is in no distress. Mood and affect appropriate. HEENT: Extraocular muscles intact. Mucous membranes are moist. NECK: Shows no jugular venous distention. I do not appreciate carotid bruit. CHEST: Reveals diminished breath sounds throughout without wheezes or rales. CARDIOVASCULAR: Reveals a regular rhythm without gallop or murmur. ABDOMEN: Reveals normal bowel sounds. The abdomen is soft and nontender. EXTREMITIES: Shows no edema. SKIN: Warm and dry. IMAGING: A 12-lead EKG shows sinus bradycardia without significant ST or T-wave abnormality. LABORATORY DATA: Labs are reviewed. Troponins are negative x 3 sets. IMPRESSION AND RECOMMENDATIONS: 1. Unstable angina with significant underlying coronary artery disease as documented above. Continue Plavix and aspirin. Suspect he may have developed some tachyphylaxis due to taking Imdur twice daily. I would like him to take all of his dose once in the morning. We will continue other medications as outlined above. Make adjustments to blood pressure medications to improve hypertension. 2. Coronary artery disease. Continue dual-antiplatelet therapy indefinitely. 3. Bradycardia, presently stable. Continue low dose beta agusto. 4. Diabetes per primary physician. 5. Hyperlipidemia, presently at goal on current dose of atorvastatin. <ELECTRONICALLY SIGNED> By: Alcon Martin MD, FACC 07/03/19 1437 1144 1231[facility] Hospitalying Martin MD, FACC /nt
[2019-07-03 20:30] VITALS: BP 123/71
[2019-07-04] VITALS (8 sets, daily range): BP systolic 114–140; BP diastolic 68–85
[2019-07-04] MEDS ORDERED: RANEXA500 MG PO (11:36)
--- NOTE | 2019-07-06 08:34 | EKG ---
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
== END 2019-07-04 13:15 | disposition home or self-care (01) | DRG 303 ==
LOC: M.TBA 20:22 → M.2W 22:16
PROVIDERS: ADMIT Internal Medicine
DX: I25.110 Atherosclerotic heart disease of native coronary artery with unstable angina pectoris (principal); G35 Multiple sclerosis; I12.9 Hypertensive chronic kidney disease with stage 1 through stage 4 chronic kidney disease, or unspecified chronic kidney disease; E78.00 Pure hypercholesterolemia, unspecified; E11.22 Type 2 diabetes mellitus with diabetic chronic kidney disease; E03.9 Hypothyroidism, unspecified; N18.2 Chronic kidney disease, stage 2 (mild); Z87.891 Personal history of nicotine dependence; Z79.899 Other long term (current) drug therapy; Z79.84 Long term (current) use of oral hypoglycemic drugs; Z86.73 Personal history of transient ischemic attack (TIA), and cerebral infarction without residual deficits; Z90.49 Acquired absence of other specified parts of digestive tract; Z95.1 Presence of aortocoronary bypass graft; Z82.49 Family history of ischemic heart disease and other diseases of the circulatory system; Z23 Encounter for immunization

== ENCOUNTER → 2020-03-09 | Outpatient (CLI) | payer MEDICARE ==
[2020-03-09 12:44] LABS: ABSOLUTE EOSINOPHILS 0.3 thou/uL (0.0-0.7); ABSOLUTE MONOCYTES 0.7 thou/uL (0.0-1.2); ABSOLUTE NEUTROPHILS 7.2 thou/uL (1.6-8.1); BASOPHILS 0.5 %; HEMATOCRIT 38.7 % (42.0-52.0); HEMOGLOBIN 13.4 gm/dL (14.0-18.0); LYMPHOCYTES 10.9 %; MCH 32.1 pg (26.0-34.0); MCHC 34.6 g/dL (28.0-37.0); MCV 92.6 fL (80.0-100.0); MONOCYTES 7.6 %; MPV 8.4 fl. (7.2-11.1); NUCLEATED RBCS 0 /100WBC; PLATELET COUNT* 221 thou/uL (150-400); RBC 4.18 mil/uL (4.50-6.00); RDW-CV 15.1 % (10.5-14.5); WBC 9.3 thou/uL (4.0-11.0)
[2020-03-09 12:57] LABS: CALCIUM 8.7 mg/dL (8.5-10.1); CREATININE 0.9 mg/dL (0.6-1.3); TOTAL BILIRUBIN 0.5 mg/dL (<0.1-1.0); TOTAL PROTEIN 7.5 g/dL (6.4-8.2)
== END ==
LOC: M.MRI 02-16 12:59 → M.LAB 03-03 15:30 → M.MRI 03-03 16:30 → M.LAB 12:17
PROVIDERS: ATTEND Psychiatry & Neurology Neuromuscular Medicine
DX: G31.89 Other specified degenerative diseases of nervous system (principal); I63.9 Cerebral infarction, unspecified; G35 Multiple sclerosis; F02.80 Dementia in other diseases classified elsewhere, unspecified severity, without behavioral disturbance, psychotic disturbance, mood disturbance, and anxiety; I10 Essential (primary) hypertension

== ENCOUNTER → 2021-08-15 | Outpatient (CLI) | payer MEDICARE, MEDICAID | LOC: M.MRI 14:27 | PROVIDERS: ATTEND Psychiatry & Neurology Neuromuscular Medicine | DX: M47.816 Spondylosis without myelopathy or radiculopathy, lumbar region (principal); I63.9 Cerebral infarction, unspecified; G35 Multiple sclerosis; M48.061 Spinal stenosis, lumbar region without neurogenic claudication; M25.78 Osteophyte, vertebrae; M46.06 Spinal enthesopathy, lumbar region ==